=== PATIENT | female | born 1995 | race African-American/Black ===

== ENCOUNTER 2017-10-20 17:49 | Emergency (ER) | payer SELFPAY ==
[2017-10-20 19:00] VITALS: BP 107/76; PULSE 68; RESP 18; TEMP 38.4; O2SAT 98; BMI 24.4
--- NOTE | 2017-10-20 19:17 | [facility].EDUTC ---
[facility] [place] Clinical Impression: Influenza Disposition: Home, Self-Care Condition on Discharge: Good Instructions: Influenza Additional Instructions: ? Start Tamiflu today if you are going to take it. Discussed risk and possible benefits. ? Lots of rest ? Increase Fluids water, Gatorade, powerade, pedialyte,if /toddler/child ? Alternate Tylenol and / or ibuprofen as discussed for fever, aches, chills x 24 hours without medication for symptoms ? Follow up IMMEDIATELY for new or worsening Symptoms OR no noticeable improvement over the next 48-72 hours, 911 for difficulty or breathing ? You or your child area contagious until no fever, aches, chills for 24 hours with medication for symptoms Prescriptions: Dextromethorphan Polistirex [Delsym] 10 ml PO Q4H #150 alexey.er.12h Oseltamivir Phosphate [Tamiflu 75mg Capsule] 75 mg PO BID #10 capsule Time of Disposition: 19:27 Medical Decision Making Vital Signs: 10/20/17 19:00 Temperature 101.2 F H Temperature Source Temporal Artery Scan Pulse Rate [Right Radial] 68 Respiratory Rate 18 Blood Pressure [Right Arm] 107/76 Blood Pressure Mean [Right Arm] 86 Blood Pressure Source [Right Arm] Automatic Cuff Blood Pressure Position [Right Arm] Sitting 02 Sat by Pulse Oximetry 98 Oxygen Delivery Method Room Air - Kenan Inquiry Pt receiving controlled substance: No Kenan was queried for this patient: No [facility] [place] - General Stated complaint: cough,fever,congestion Mode of Arrival: Ambulatory Source of Information: Patient Limitations: No Limitations Description of Symptoms (Recalled from Triage Doc. by RN): FLU LIKE SYMPTOMS FOR A WEEK HEENT Symptoms (Recalled from RN notes): No Resp Symptoms (Recalled from RN notes): Yes (FLU LIKE SYMPTOMS) Skin Symptoms (Recalled from RN notes): No MS Symptoms (Recalled from RN notes): No Functional Status (Recalled from RN notes): NA - History of Present Illness Provider Complaint: Patient state that she has not been feeling well now for about a week with flu like symptoms body aches, chills States that since this morning she has started running a fever and symptoms worsened Onset (ago): hour(s) (8) Severity: mild Severity scale (1-10): 3 Exacerbating factors: none Associated symptoms: cough, fever/chills, nausea/vomiting Treatments prior to arrival: none - Related Data Previous Rx's Medication Instructions Recorded Dextromethorphan Polistirex 10 ml PO Q4H #150 alexey.er.12h 10/20/17 [Delsym] Oseltamivir Phosphate [Tamiflu 75 mg PO BID #10 capsule 10/20/17 75mg Capsule] Allergies Allergy/AdvReac Type Severity Reaction Status Date / Time NKDA - NO KNOWN DRUG Allergy Unknown Uncoded 10/06/17 14:53 ALLERGIES - Worker's Comp Is this a Worker's Comp case?: No [facility] History Medical History: Denies:: Cancer, Diabetes Mellitus Type 1, Diabetes Mellitus Type 2, MRSA Amputation: No Fractures: No - *Social History Smoking Status: Never smoker Alcohol Intake: never - Psychiatric History Expresses thoughts of harming self/others: None Suicide Plan Description: No Plan - Constitutional Reports chills, Reports fatigue, Reports fever(s) - ENT Reports nasal congestion, Reports sinus pain, Reports sore throat - Respiratory Reports cough Physical Exam - General General appearance: alert, in no apparent distress - Expanded ENT Exam Throat exam: Present: other (Throat red, irritated, clear drainage from nose) - Chest Chest inspection: Present: normal inspection, symmetric chest wall rise. Absent: tenderness - Respiratory Respiratory exam: Present: normal lung sounds bilaterally. Absent: respiratory distress - Cardiovascular Cardiovascular exam: Present: regular rate, normal rhythm. Absent: JVD - Neurological Exam Neurological exam: Present: alert, oriented X3 - Skin Skin exam: Present: warm, dry, intact, normal color
--- NOTE | 2017-10-20 19:20 | ED_ITS ---
[facility] [place] [facility] [place] Clinical Impression: Influenza Disposition: Home, Self-Care Condition on Discharge: Good Instructions: Influenza Additional Instructions: ? Start Tamiflu today if you are going to take it. Discussed risk and possible benefits. ? Lots of rest ? Increase Fluids water, Gatorade, powerade, pedialyte,if /toddler/child ? Alternate Tylenol and / or ibuprofen as discussed for fever, aches, chills x 24 hours without medication for symptoms ? Follow up IMMEDIATELY for new or worsening Symptoms OR no noticeable improvement over the next 48-72 hours, 911 for difficulty or breathing ? You or your child area contagious until no fever, aches, chills for 24 hours with medication for symptoms Prescriptions: Dextromethorphan Polistirex [Delsym] 10 ml PO Q4H #150 alexey.er.12h Oseltamivir Phosphate [Tamiflu 75mg Capsule] 75 mg PO BID #10 capsule Time of Disposition: 19:27 Medical Decision Making Vital Signs: 10/20/17 19:00 Temperature 101.2 F H Temperature Source Temporal Artery Scan Pulse Rate [Right Radial] 68 Respiratory Rate 18 Blood Pressure [Right Arm] 107/76 Blood Pressure Mean [Right Arm] 86 Blood Pressure Source [Right Arm] Automatic Cuff Blood Pressure Position [Right Arm] Sitting 02 Sat by Pulse Oximetry 98 Oxygen Delivery Method Room Air - Kenan Inquiry Pt receiving controlled substance: No Kenan was queried for this patient: No [facility] [place] [facility] [place] - General Stated complaint: cough,fever,congestion Mode of Arrival: Ambulatory Source of Information: Patient Limitations: No Limitations Description of Symptoms (Recalled from Triage Doc. by RN): FLU LIKE SYMPTOMS FOR A WEEK HEENT Symptoms (Recalled from RN notes): No Resp Symptoms (Recalled from RN notes): Yes (FLU LIKE SYMPTOMS) Skin Symptoms (Recalled from RN notes): No MS Symptoms (Recalled from RN notes): No Functional Status (Recalled from RN notes): NA - History of Present Illness Provider Complaint: Patient state that she has not been feeling well now for about a week with flu like symptoms body aches, chills States that since this morning she has started running a fever and symptoms worsened Onset (ago): hour(s) (8) Severity: mild Severity scale (1-10): 3 Exacerbating factors: none Associated symptoms: cough, fever/chills, nausea/vomiting Treatments prior to arrival: none - Related Data Previous Rx's Medication Instructions Recorded Dextromethorphan Polistirex 10 ml PO Q4H #150 alexey.er.12h 10/20/17 [Delsym] Oseltamivir Phosphate [Tamiflu 75 mg PO BID #10 capsule 10/20/17 75mg Capsule] Allergies Allergy/AdvReac Type Severity Reaction Status Date / Time NKDA - NO KNOWN DRUG Allergy Unknown Uncoded 10/06/17 14:53 ALLERGIES - Worker's Comp Is this a Worker's Comp case?: No [facility] History Medical History: Denies:: Cancer, Diabetes Mellitus Type 1, Diabetes Mellitus Type 2, MRSA Amputation: No Fractures: No - *Social History Smoking Status: Never smoker Alcohol Intake: never - Psychiatric History Expresses thoughts of harming self/others: None Suicide Plan Description: No Plan - Constitutional Reports chills, Reports fatigue, Reports fever(s) - ENT Reports nasal congestion, Reports sinus pain, Reports sore throat - Respiratory Reports cough Physical Exam
[2017-10-20 19:43] LABS: UTC Influenza A Antigen Positive (Negative); UTC Influenza B Antigen Negative (Negative)
== END 2017-10-20 19:47 | disposition home or self-care (01) ==
PROVIDERS: Emergency Provider Nurse Practitioner
DX: J11.1 Influenza due to unidentified influenza virus with other respiratory manifestations (principal)
CPT/HCPCS: 87276; 87804; 99201

== ENCOUNTER → 2021-08-08 19:32 | Outpatient (CLI) | payer OTHER, SELFPAY | PROVIDERS: Visit Provider Nurse Practitioner Family | DX: Z20.822 Contact with and (suspected) exposure to COVID-19 (principal) | CPT/HCPCS: C9803; U0003; U0005 ==